=== PATIENT | male | born 1945 | race Caucasian/White ===

== ENCOUNTER 2019-05-01 07:12 | Observation (INO) ==
--- NOTE | 2019-04-19 08:46 | EKG Report ---
Test Performed on : 04/19/2019 08:28:47 AM Test Reason : pat Blood Pressure : / mmHG Vent. Rate : 064 BPM Atrial Rate : 064 BPM P-R Int : 108 ms QRS Dur : 092 ms QT Int : 444 ms P-R-T Axes : 031 070 083 degrees QTc Int : 458 ms Sinus rhythm. with short MO Otherwise normal ECG No previous ECGs available Confirmed by Tammy CUELLO, Jesús Martinez ([id number]) on 04/19/2019 9:45:50 AM
[2019-04-19 09:47] LABS: URINE SOURCE CLEAN CATCH
[2019-04-19 10:00] LABS: BASO# 0.06 X1000 (0.0-0.2); BASO% 0.6 % (0.0-0.8); EOS# 0.38 X1000 (0.0-0.7); EOS% 4.1 % (0.0-10.0); HEMATOCRIT 48.1 % (42.0-52.0); HEMOGLOBIN 15.7 g/dL (14.0-18.0); IMM GRAN# 0.02 X1000 (0.0-0.04); IMM GRAN% 0.2 % (0.0-0.5); LYMPH# 4.01 X1000 (1.2-3.4); LYMPH% 42.9 % (20.5-51.1); MCH 27.7 PG (27-31); MCHC 32.6 g/dL (33-37); MONO# 0.86 X1000 (0.11-0.59); MONO% 9.2 % (1.7-9.3); MPV 11.2 FL (7.4-10.4); NEUT# 4.01 X1000 (1.4-6.5); PLT 266 X1000 (130-400); RBC 5.66 XMIL (4.7-6.1); WBC 9.34 X1000 (4.8-10.8)
[2019-04-19 10:11] LABS: INR 0.91
[2019-04-19 10:12] LABS: BILIRUBIN URINE NEGATIVE (NEGATIVE); BLOOD URINE NEGATIVE (NEGATIVE); COLOR STRAW; GLUCOSE URINE NEGATIVE (NEGATIVE); KETONE URINE NEGATIVE (NEGATIVE); LEUKOCYTES URINE NEGATIVE (NEGATIVE); NITRITE URINE NEGATIVE (NEGATIVE); PH URINE 5.5; PROTEIN URINE NEGATIVE (NEGATIVE); TURBIDITY URINE CLEAR (CLEAR); UROBILINOGEN URINE NORMAL (NORMAL)
[2019-04-19 10:13] LABS: PTT 32.8 Seconds (22.3-41.8)
[2019-04-19 10:14] LABS: UR EPITHELIAL CELLS <10 /HPF (<10); URINE BACTERIA NEGATIVE /HPF; URINE RBC <10 /HPF (<10); URINE WBC <10 /HPF (<10)
[2019-04-19 10:50] LABS: HEMOGLOBIN A1C 5.5 % (4.8-6.0)
[2019-04-19 11:28] LABS: CALCIUM 9.1 mg/dL (8.8-10.2); CREATININE 1.3 mg/dL (0.7-1.2); POTASSIUM 4.9 mmol/L (3.5-5.1)
[2019-05-01] MEDS ORDERED: COLACE ONE (07:38)
[2019-05-01] MEDS ORDERED: LR 1,000 ML ONE (07:38)
[2019-05-01] MEDS ORDERED: LYRICA ONE (07:38)
[2019-05-01] MEDS ORDERED: PEPCID ONE (07:38)
[2019-05-01] MEDS ORDERED: REGLAN ONE (07:38)
[2019-05-01] MEDS ORDERED: KEFZOL 1 GM/D5W 2 GM/100 ML IVPB ONE (07:38)
[2019-05-01] MEDS ORDERED: XYLOCAINE-MPF 1% ONE (07:51)
[2019-05-01] MEDS ORDERED: DECADRON ONE (08:18)
[2019-05-01] MEDS ORDERED: ZOFRAN ONE (08:18)
[2019-05-01] MEDS ORDERED: FENTANYL ONE (08:18)
[2019-05-01] MEDS ORDERED: DIPRIVAN 1% ONE (08:18)
[2019-05-01] MEDS ORDERED: ROBINUL ONE (08:18)
[2019-05-01] MEDS ORDERED: XYLOCAINE-MPF 2% ONE (08:18)
[2019-05-01] MEDS ORDERED: DURAMORPH ONE (08:19)
[2019-05-01] MEDS ORDERED: MARCAINE 0.25% PF/EPI 1:200,000 ONE (08:19)
[2019-05-01] MEDS ORDERED: VANCOMYCIN ONE (08:19)
[2019-05-01] MEDS ORDERED: TORADOL ONE (08:19)
[2019-05-01] MEDS ORDERED: SODIUM CHLORIDE 0.9% ONE (08:20)
[2019-05-01] MEDS ORDERED: CYKLOKAPRON 1,000 MG/NS 2,000 MG/200 ML IVPB ONE (08:20)
[2019-05-01] MEDS ORDERED: NEOSPORIN G.U. IRRIGANT ONE (08:20)
[2019-05-01] MEDS ORDERED: EXPAREL 1.3% ONE (08:20)
[2019-05-01] MEDS ORDERED: OFIRMEV 1000 MG/ISOTONIC SOLN 1,000 MG/100 ML BOTTLE ONE (08:23)
[2019-05-01 10:51] LABS: URINE SOURCE CATH
[2019-05-01 11:06] LABS: BILIRUBIN URINE NEGATIVE (NEGATIVE); BLOOD URINE NEGATIVE (NEGATIVE); COLOR STRAW; GLUCOSE URINE NEGATIVE (NEGATIVE); KETONE URINE NEGATIVE (NEGATIVE); LEUKOCYTES URINE TRACE (NEGATIVE); NITRITE URINE NEGATIVE (NEGATIVE); PH URINE 6.5; PROTEIN URINE NEGATIVE (NEGATIVE); SP GRAVITY URINE 1.008; TURBIDITY URINE CLEAR (CLEAR); UROBILINOGEN URINE NORMAL (NORMAL)
[2019-05-01 11:07] LABS: UR EPITHELIAL CELLS <10 /HPF (<10); URINE BACTERIA NEGATIVE /HPF; URINE RBC <10 /HPF (<10); URINE WBC <10 /HPF (<10)
[2019-05-01] MEDS ORDERED: NS 1,000 ML ONE (11:14)
[2019-05-01] MEDS ORDERED: ZOFRAN IV PRN (11:45)
[2019-05-01] MEDS ORDERED: ZOFRAN ODT PO PRN (11:45)
[2019-05-01] MEDS ORDERED: MILK OF MAGNESIA PO PRN (11:45)
[2019-05-01] MEDS ORDERED: AMBIEN PO PRN (11:45)
[2019-05-01] MEDS ORDERED: MORPHINE IV PRN ×3 (11:45)
[2019-05-01] MEDS ORDERED: OXY IR PO PRN ×2 (11:45)
[2019-05-01] MEDS: KEFZOL 2 GM/D5W 2 GM/50 ML IVPB IV SCH (17:58)
[2019-05-01] MEDS: ULTRAM PO SCH (17:59)
[2019-05-01] MEDS: TYLENOL PO SCH ×2 (17:59→21:40)
[2019-05-01] MEDS: NS 1,000 ML IV SCH (17:59)
[2019-05-01] MEDS ORDERED: SEROQUEL PO SCH (21:00)
[2019-05-01] MEDS: COLACE PO SCH (21:39)
[2019-05-01] MEDS: PERIDEX MT SCH (21:39)
[2019-05-01] MEDS: LYRICA PO SCH (21:40)
[2019-05-02] MEDS: KEFZOL 2 GM/D5W 2 GM/50 ML IVPB IV SCH (00:34)
[2019-05-02] MEDS: NS 1,000 ML IV SCH (00:37)
[2019-05-02] MEDS: ULTRAM PO SCH ×3 (04:59→09:42)
[2019-05-02 06:06] LABS: HEMATOCRIT 38.6 % (42.0-52.0); HEMOGLOBIN 12.7 g/dL (14.0-18.0)
[2019-05-02 06:29] LABS: AGAP 12; BUN 16 mg/dL (8-22); CALCIUM 8.7 mg/dL (8.8-10.2); CHLORIDE 109 mmol/L (98-107); COSMO 286; CREATININE 1.1 mg/dL (0.7-1.2); ESTIMATED GFR > 60; GLUCOSE 130 mg/dL (70-104); POTASSIUM 4.2 mmol/L (3.5-5.1); SODIUM 142 mmol/L (136-145); TCO2 21 mmol/L (25-35)
[2019-05-02] MEDS ORDERED: DECADRON IV ONE (09:00)
[2019-05-02] MEDS ORDERED: PEPCID PO SCH (09:00)
[2019-05-02] MEDS ORDERED: ASPIRIN PO SCH (09:00)
[2019-05-02] MEDS: PERIDEX MT SCH (10:21)
[2019-05-02] MEDS: LYRICA PO SCH (10:22)
[2019-05-02] MEDS: TYLENOL PO SCH (10:22)
[2019-05-02] MEDS: COLACE PO SCH (10:22)
[2019-05-02 11:53] VITALS: BP 176/74
--- NOTE | 2019-05-03 11:52 | OPERATIVE NOTE ---
PROCEDURE DATE: 05/01/2019 PREOPERATIVE DIAGNOSIS: Left knee degenerative joint disease. POSTOPERATIVE DIAGNOSIS: Left knee degenerative joint disease. PROCEDURE PERFORMED: Left total knee arthroplasty using a [facility] size 7 femoral component, size 8 tibial base plate, a 16 mm articular insert, and a 32 mm patellar component. ANESTHESIA: Spinal. SURGEON: Kai Liu MD. CLERK ANALYST: Paloma Everett PA-C, who was present throughout the case. Her assistance was critical for exposure, decision making, placement of the implants, and closure. Her assistance was necessary for successful completion of the case. BLOOD LOSS: Minimal. TIME OF TOURNIQUET: Approximately 1-1/2 hours. DESCRIPTION OF PROCEDURE: The patient was brought to the operative suite and placed in supine position. After successful administration of general anesthesia, a well-padded tourniquet was placed on the left proximal thigh. Left lower extremity was prepped and draped in usual sterile fashion. Leg was exsanguinated. Tourniquet insufflated to 350 torr. A longitudinal incision was made beginning in the superior pole patella and extended distally to the tibia tuberosity. It was dissected sharply through the skin. Then, a medial arthrotomy was made, elevating the medial capsule off the medial tibial plateau. The ACL, PCL, medial meniscus, and lateral meniscus were excised. The patella was everted and 9 mm of the articular surface of patella removed with oscillating saw. The patella sized to size 32. A size 32 guide was used to drill peg holes. Lateral facet was chamfered 30 to 45 degrees. Attention was then directed to the femur. A drill was entered in the distal femur. Intramedullary guide was placed. Distal cutting block was pinned into place. Distal cut was made with oscillating saw. Marginal osteophytes were removed with the rongeur. Attention was directed to the tibia. A drill was entered into the tibial canal. Intramedullary guide was placed. Alignment was checked with drop mack, [*]the anterior cortex of the tibia and taking 4 mm off the low side of the tibia which in this case was medially. The tibial cutting block was pinned into place. The articular surface of the tibial plateau was removed with the oscillating saw. Extension gap was checked and found to be 16 mm. Therefore, the flexion gap was set to 25 mm to balance the knee accounting for 9 mm thickness of the posterior condyles of the femoral component. The femoral guide was then pinned into place. Once it was set in proper rotation and the femur was sized to a size 6, a size 6 cutting block was pinned in place. Anterior cuts, chamfer cuts, and posterior condylar cuts were made with the oscillating saw. Marginal osteophytes removed with rongeur. A box cutting block was pinned in place. A box cut was made with a box osteotome and oscillating saw. Posterior condyle osteophytes removed with the curved osteotome and rongeur. Attention was then directed to the tibia. The tibia sized to size 7. A size 7 guide was used for the fin punch. The tibial trial, femoral trial and 16 mm articular insert, and a 32 mm patellar component were placed and taken through range of motion. They were found to have excellent alignment, balancing, range of motion and patellar tracking. All trials were then removed. The knee was copiously irrigated and dried, being certain all bone debris was removed. The tibial component, femoral component, and patellar component were cemented into place, excess cement removed with a Toney. Once the cement had hardened, excess cement was again removed with an osteotome. Knee was again copiously irrigated and dried, being certain all bone and cement debris removed. The trial articular insert was removed. The knee was copiously infiltrated with Exparel including posterior capsule, anterior capsule, medial and lateral collateral ligaments, intermuscular and subcutaneous tissue. The definitive 16 mm articular insert was locked into place. A drain was placed exiting superior lateral and buried in the lateral gutter. The knee was again copiously irrigated with normal saline containing irrigant and Vashe irrigation. The medial arthrotomy was closed with a combination of #1 Vicryl and 0 V-Loc suture. The skin edge approximated with a 2-0 Vicryl. Skin edge approximated with Prineo and a sterile dressing was applied. The patient tolerated the procedure well without complication. At the end of the procedure, all counts were correct x2. The patient was transferred to the recovery room in stable condition. cc: Kai Liu MD [facility]
== END 2019-05-02 13:16 | disposition home or self-care (01) ==
LOC: OPS 07:12 → 4N 07:12 → PAT 07:12
PROVIDERS: ADMIT Orthopaedic Surgery; ATTEND Orthopaedic Surgery
CPT/HCPCS: 80048; 81001; 82040; 83036; 85014; 85018; 85025; 85610; 85730; 86850; 86900; 86901; 87088; 88305; 88311; 93005; 93010; 94761; 94799; 97110; 97162; 97530; A9270; C9290; J0131; J0690; J1100; J1885; J2274; J2275; J2405; J3010; J3370; J7030; J7120; Q9974